=== PATIENT | female | born 1935 | race African-American/Black ===

== ENCOUNTER 2016-06-27 09:35 | Outpatient (RCR) | payer OTHER ==
[~2016-06-27 09:35] MED LIST: AGGRENOX1 CAP ORAL
== END 2016-07-23 | disposition home or self-care (01) ==
LOC: PTY 09:35
DX: M25.511 Pain in right shoulder (principal)

== ENCOUNTER 2016-07-25 08:25 | Outpatient (RCR) | payer OTHER | END 2016-08-20 | disposition home or self-care (01) | LOC: PTY 08:25 | DX: M25.511 Pain in right shoulder (principal) ==